=== PATIENT | female | born 1990 | race Caucasian/White ===

== ENCOUNTER 2019-02-21 09:37 | Emergency (ER) | payer MEDICAID ==
[2019-02-21 09:54] VITALS: BP 121/70
== END 2019-02-21 11:47 | disposition left against medical advice (07) ==
LOC: ER 09:37
DX: Z53.21 Procedure and treatment not carried out due to patient leaving prior to being seen by health care provider (principal)

== ENCOUNTER → 2019-02-28 | Outpatient (CLI) | payer BC, MEDICAID ==
[2019-02-28 17:59] LABS: ABSOLUTE EOSINOPHILS # (AUTO) 0.1 10^3/uL (0.0-0.6); ABSOLUTE LYMPHOCYTES (AUTO) 2.8 10^3/uL (0.5-4.7); ABSOLUTE MONOCYTES (AUTO) 0.8 10^3/uL (0.1-1.4); ABSOLUTE NEUT (AUTO) 4.7 10^3/uL (1.7-8.2); BASOPHILS % (AUTO) 0.5 % (0-2); EOSINOPHILS % (AUTO) 1.6 % (0-6); HEMATOCRIT 30.1 % (36.0-47.0); HEMOGLOBIN 9.3 g/dL (12.0-15.5); LYMPHOCYTES % (AUTO) 33.1 % (13-45); MEAN CORPUSCULAR HEMOGLOBIN 21.2 pg (27.0-33.4); MEAN CORPUSCULAR HGB CONC 30.8 g/dL (32.0-36.0); MEAN CORPUSCULAR VOLUME 69 fl (80-97); MONOCYTES % (AUTO) 9.1 % (3-13); PLATELET COUNT 272 10^3/uL (150-450); RED BLOOD COUNT 4.37 10^6/uL (3.72-5.28); RED CELL DISTRIBUTION WIDTH 19.5 % (11.5-14.0); SEGMENTED NEUTROPHILS % (AUTO) 55.7 % (42-78); TOTAL CELLS COUNTED % (AUTO) 100 %; WHITE BLOOD COUNT 8.4 10^3/uL (4.0-10.5)
[2019-02-28 18:13] LABS: IRON(TIBC) 18.4 ug/dL (37-170)
[2019-02-28 18:54] LABS: FERRITIN 6.04 ng/mL (6.2-137.0)
== END ==
LOC: OD 17:00
PROVIDERS: ATTEND Student in an Organized Health Care Education/Training Program
DX: Z13.0 Encounter for screening for diseases of the blood and blood-forming organs and certain disorders involving the immune mechanism (principal)
CPT/HCPCS: 36415; 82607; 82728; 82746; 83540; 83550; 85025

== ENCOUNTER → 2019-05-10 | Outpatient (CLI) | payer BC, MEDICAID | LOC: OD 12:36 | PROVIDERS: ATTEND Advanced Practice Midwife | DX: Z36.89 Encounter for other specified antenatal screening (principal) | CPT/HCPCS: 36415; 82105; 82677; 84702; 86336 ==

== ENCOUNTER 2019-05-22 23:20 | Emergency (ER) | payer BC, MEDICAID ==
--- NOTE | 2019-05-23 00:01 | ER Document Report ---
ED General - General Chief Complaint: Lower Abdominal Pain Stated Complaint: LOWER ABDOMINAL PAIN Time Seen by Provider: 05/22/19 23:41 Primary Care Provider: KOSTA BOJORQUEZ CNM [Primary Care Provider] - Follow up as needed Notes: 28-year-old female G4, who is 18 weeks presents the emergency department with intermittent cramping lower abdominal pain that is going on every 6 to 7 minutes since around 830 this evening associated with vaginal bleeding that is approximately 1 pad every 1-2 hours. Patient states that she is actually started slow down a little bit since arriving in the emergency department. Denies dysuria, denies vomiting. States that she has intermittently had bleeding and pain throughout this however has not been this bad this . Admits to uterine fibroids during this and states she has been told that she is having bleeding around the placenta. [facility], will start seeing [facility] on 06/14/2019 in [place]. TRAVEL OUTSIDE OF THE [place] IN LAST 30 DAYS: No - Related Data Allergies/Adverse Reactions: No Known Allergies Allergy (Verified 02/21/19 09:41) Past Medical History - General Information source: Patient - Social History Smoking Status: Former Smoker Chew tobacco use (# tins/day): No Frequency of alcohol use: None Drug Abuse: None, Marijuana Family History: Reviewed & Not Pertinent Patient has suicidal ideation: No Patient has homicidal ideation: No - Past Medical History Cardiac Medical History: Denies: Hx Hypertension Neurological Medical History: Denies: Hx Cerebrovascular Accident, Hx Migraine Endocrine Medical History: Denies: Hx Diabetes Mellitus Type 2 Musculoskeletal Medical History: Reports Hx Arthritis - mild Psychiatric Medical History: Reports: Hx Anxiety, Hx Bipolar Disorder - Immunizations Hx Diphtheria, Pertussis, Tetanus Vaccination: Yes Review of Systems - Review of Systems Constitutional: No symptoms reported Gastrointestinal: See HPI Genitourinary: See HPI Female Genitourinary: See HPI -: Yes All other systems reviewed and negative Physical Exam - Vital signs Vitals: Temp Pulse Resp BP Pulse Ox 98.0 F 83 18 111/66 100 05/22/19 23:24 05/22/19 23:24 05/22/19 23:24 05/22/19 23:24 05/22/19 23:24 Interpretation: Normal - Notes Notes: GENERAL: Awake, sitting up in bed, appears anxious and uncomfortable. Mildly diaphoretic. HEAD: Normocephalic, atraumatic EYES: Pupils equal, round and reactive to light, extraocular movements intact. ENT: Oral mucosa moist, tongue midline. NECK: Full range of motion, supple, trachea midline. LUNGS: Clear to auscultation bilaterally, no wheezes, rales or rhonchi, no respiratory distress. HEART: Regular rate and rhythm, no murmurs, gallops, rubs. ABDOMEN: Soft, tender to palpation suprapubically, uterus appropriate for dates, bedside transabdominal ultrasound shows active baby with normal heart rate, bowel sounds present in all 4 quadrants. EXTREMITIES: Moves all 4 extremities spontaneously, no edema, radial and dorsalis pedis pulses 2/4 bilaterally. No cyanosis. NEUROLOGICAL: Alert and oriented x3, normal speech. PSYCH: Anxious. SKIN: Warm, diaphoretic normal turgor, no rashes or lesions noted. - Genitourinary External exam: Normal Speculum exam: Cervix closed. No: Products of conception Vaginal bleeding: None Course - Re-evaluation Re-evalutation: 05/23/19 02:48 CBC shows anemia with hemoglobin 10.2, on February 28 it was 9.3, no leukocytosis, CMP unremarkable, urinalysis shows trace ketones, cramping is decreased with Nubain and fluids, OB ultrasound shows subchorionic hemorrhage. Obstetrics Ultrasound 05/22/19 23:58 IMPRESSION: 1. Single viable IUP, EGA 18 weeks 6 days, [place] 10/16/2019 2. Atypical area along the uterine wall, possibly prior hemorrhage or an area of uterine contraction. Follow-up recommended. Bleeding has stopped, cervix is closed. Patient is recommended to rest for the next few days, I will write her a work note. Patient states she is supposed to be getting iron transfusions but has been difficulty accessing this. We discussed hiring foods, cooking and cast iron and eating raisin Bran both as a high iron food and something to help with her constipation. Also discussed the possibility of using magnesium to help with her uterine cramping as well as constipation. Will follow-up as an outpatient. Discharged home. - Vital Signs Vital signs: Temp Pulse Resp BP Pulse Ox 98.0 F 83 18 111/66 100 05/22/19 23:24 05/22/19 23:24 05/22/19 23:24 05/22/19 23:24 05/22/19 23:24 - Laboratory Result Diagrams: 05/23/19 00:00 05/23/19 00:00 Laboratory results interpreted by me: 05/23/19 05/23/19 05/23/19 00:00 00:00 00:53 Hgb 10.2 L Hct 31.4 L MCV 74 L MCH 24.1 L RDW 18.3 H Sodium 135.1 L Albumin 3.4 L Urine Ketones TRACE H Discharge - Discharge Clinical Impression: Haemorrhage complicating , less than 22 weeks, antepartum, Second trimester Condition: Stable Disposition: HOME, SELF-CARE Additional Instructions: You need to be on complete pelvic rest as long as you are having bleeding or cramping. Do not have sex, do not use tampons, do not put anything in your vagina. I am recommending that you stay off of work for the next few days to rest and recover. For more time off of work than that you will need to follow-up with [facility] as an outpatient. You can try taking magnesium oxide, also noticed Mag-Ox, 400 to 800 mg daily in the evenings in order to decrease constipation, possibly decrease your uterine cramping and help with any muscle cramps that you may be getting in as well. This can make you somewhat sleepy so I recommend taking it at night. Please dissolve 1 scoop of MiraLAX in a glass of water once a day to treat constipation. You may increase to twice a day if needed to create soft bowel movements and you may decrease to every other day if you develop diarrhea. For your nausea with please consider keeping bland snacks beside your bed such as saltines or wheat thins that you can eat 1 or 2 of as soon as you wake up in the morning to help absorb acid in your stomach. You should also consider taking a daily antacid to decrease the acid in your stomach such as Pepcid or Protonix as directed on the bottle [id number]. Please return to the emergency department for any new or concerning symptoms. Forms: Return to Work Referrals: KOSTA BOJORQUEZ CNM [Primary Care Provider] - Follow up as needed [facility] [Provider Group] - Follow up as needed
[2019-05-23 00:17] LABS: ABSOLUTE BASOPHILS # (AUTO) 0.1 10^3/uL (0.0-0.2); ABSOLUTE LYMPHOCYTES (AUTO) 2.4 10^3/uL (0.5-4.7); ABSOLUTE MONOCYTES (AUTO) 0.5 10^3/uL (0.1-1.4); ABSOLUTE NEUT (AUTO) 5.2 10^3/uL (1.7-8.2); EOSINOPHILS % (AUTO) 0.6 % (0-6); HEMATOCRIT 31.4 % (36.0-47.0); HEMOGLOBIN 10.2 g/dL (12.0-15.5); MEAN CORPUSCULAR HEMOGLOBIN 24.1 pg (27.0-33.4); MEAN CORPUSCULAR HGB CONC 32.5 g/dL (32.0-36.0); MEAN CORPUSCULAR VOLUME 74 fl (80-97); MONOCYTES % (AUTO) 6.3 % (3-13); PLATELET COUNT 207 10^3/uL (150-450); RED BLOOD COUNT 4.24 10^6/uL (3.72-5.28); RED CELL DISTRIBUTION WIDTH 18.3 % (11.5-14.0); SEGMENTED NEUTROPHILS % (AUTO) 63.1 % (42-78); TOTAL CELLS COUNTED % (AUTO) 100 %; WHITE BLOOD COUNT 8.3 10^3/uL (4.0-10.5)
[2019-05-23] MEDS ORDERED: NALBUPHINE HCL INJ 10 MG/1 ML AMPULE INJ ONE (00:32)
[2019-05-23] MEDS ORDERED: NORMAL SALINE 1000 ML 1,000 ML IV ONE (00:32)
[2019-05-23 00:39] LABS: ALBUMIN 3.4 g/dL (3.5-5.0); ALKALINE PHOSPHATASE 60 U/L (38-126); ANION GAP 6 (5-19); ASPARTATE AMINO TRANSFERASE 17 U/L (14-36); BILIRUBIN,TOTAL 0.3 mg/dL (0.2-1.3); BLOOD UREA NITROGEN 7 mg/dL (7-20); CALCIUM 9.3 mg/dL (8.4-10.2); CARBON DIOXIDE 22 mmol/L (22-30); CHLORIDE 107 mmol/L (98-107); GLUCOSE 85 mg/dL (75-110); POTASSIUM 3.6 mmol/L (3.6-5.0); TOTAL PROTEIN 6.5 g/dL (6.3-8.2)
[2019-05-23 01:13] LABS: APPEARANCE,URINE CLEAR; BILIRUBIN,URINE NEGATIVE (NEGATIVE); COLOR,URINE STRAW; GLUCOSE, URINE NEGATIVE (NEGATIVE); KETONES,URINE TRACE mg/dL (NEGATIVE); LEUKOCYTE ESTERASE,URINE NEGATIVE (NEGATIVE); NITRITE,URINE NEGATIVE (NEGATIVE); PROTEIN,URINE NEGATIVE (NEGATIVE); URINE SPECIFIC GRAVITY 1.008; UROBILINOGEN,URINE NEGATIVE mg/dL (<2.0)
--- NOTE | 2019-05-23 01:55 | RADIOLOGY REPORT (SQ) ---
EXAM DESCRIPTION: RadLex: US FOLLOW UP CLINICAL HISTORY: 28 years Female; vaginal bleeding, cramping TECHNIQUE: Transabdominal obstetrical ultrasound was performed. COMPARISON: None. FINDINGS: Number of fetuses: Single position: Vertex BPD: 4.4 cm, 19 weeks 2 days HC: 16.78 cm, 19 weeks 3 days AC: 13.54 cm, 19 weeks 0 days FL: 2.79 cm, 18 weeks 4 days EFW: 261 g HR: 121 BPM Anatomy: Within normal limits Amniotic fluid:Adequate Cervix: 3.2 cm long Placenta: Fundal Along the left lower margin of the uterine wall there is 2.7 x 2.2 x 1.3 cm area of slightly hypoechoic heterogeneous echogenicity. This is indeterminate for previous hematoma or possibly area of uterine contractions. Follow-up evaluation is recommended. IMPRESSION: 1. Single viable IUP, EGA 18 weeks 6 days, [place] 10/16/2019 2. Atypical area along the uterine wall, possibly prior hemorrhage or an area of uterine contraction. Follow-up recommended.
[2019-05-23 03:05] VITALS: BP 104/43
== END 2019-05-23 03:38 | disposition home or self-care (01) ==
LOC: ER 23:20
DX: O20.8 Other hemorrhage in early pregnancy (principal); O99.612 Diseases of the digestive system complicating pregnancy, second trimester; K59.00 Constipation, unspecified; O26.892 Other specified pregnancy related conditions, second trimester; R10.30 Lower abdominal pain, unspecified; R61 Generalized hyperhidrosis; O99.012 Anemia complicating pregnancy, second trimester; D64.9 Anemia, unspecified; Z3A.18 18 weeks gestation of pregnancy; Z87.891 Personal history of nicotine dependence
CPT/HCPCS: 86900; 86901; 36415; 85025; 80053; 81001; 76805; 93976; J2300; J7030; 96361; 96374; 99284

== ENCOUNTER 2019-07-21 07:29 | Outpatient (CLI) | payer BC, MEDICAID ==
[2019-07-21 08:05] LABS: INTERNATIONAL RATION (INR) 0.89
[2019-07-21 08:06] LABS: FIBRINOGEN 409 mg/dL (209-497); PARTIAL THROMBOPLASTIN TIME 23.5 SEC (23.5-35.8)
[2019-07-21] MEDS ORDERED: PENICILLIN G-K 5 MILLION UNIT VIAL ONE (08:13)
[2019-07-21] MEDS ORDERED: BETAMET ACET/BETAMET NA INJ 6 MG/1 ML ONE (08:13)
[2019-07-21] MEDS ORDERED: NORMAL SALINE 250 ML IV PRN (08:15)
[2019-07-21 08:22] LABS: ABSOLUTE BASOPHILS # (AUTO) 0.1 10^3/uL (0.0-0.2); ABSOLUTE EOSINOPHILS # (AUTO) 0.2 10^3/uL (0.0-0.6); ABSOLUTE LYMPHOCYTES (AUTO) 2.9 10^3/uL (0.5-4.7); ABSOLUTE MONOCYTES (AUTO) 0.7 10^3/uL (0.1-1.4); EOSINOPHILS % (AUTO) 1.8 % (0-6); HEMATOCRIT 39.6 % (36.0-47.0); HEMOGLOBIN 13.7 g/dL (12.0-15.5); LYMPHOCYTES % (AUTO) 26.6 % (13-45); MEAN CORPUSCULAR HEMOGLOBIN 30.5 pg (27.0-33.4); MEAN CORPUSCULAR HGB CONC 34.7 g/dL (32.0-36.0); MEAN CORPUSCULAR VOLUME 88 fl (80-97); MONOCYTES % (AUTO) 6.4 % (3-13); PLATELET COUNT 224 10^3/uL (150-450); RED CELL DISTRIBUTION WIDTH 27.4 % (11.5-14.0); SEGMENTED NEUTROPHILS % (AUTO) 64.2 % (42-78); TOTAL CELLS COUNTED % (AUTO) 100 %
--- NOTE | 2019-07-21 08:35 | Admission Physical ---
Datetime Report Generated by CPN: 07/21/2019 08:34 CURRENT ADMISSION Chief Complaint: Vaginal Bleeding Chief Complaint Other: Reports heavy vaginal bleeding this am. Bleeding throughout off and on but much heavier today. Reports pressure and pain this am like she has to push Admit Impression : Vaginal Bleeding Admit Impression- Other: Vaginal bleeding light to minimal at this time. Abd soft. heart rate reassuring at 130 bpm. Cervix cm and thick. Admit Plan: Admit to Unit; Initiate Labor Protocol Admit Plan- Other: Admit for abruption ALLERGIES Medication Allergies: Yes Medication Allergies: Latex, Natural Rubber/MO (07/21/2019); methadone/SV (07/21/2019) Latex: Latex Allergies Food Allergies: None Environmental Allergies: None OBSTETRICAL HISTORY EDC: 10/21/2019 00:00 : 4 Para: 2 Term: 2 SAB: 1 Ectopic: 0 Livin Cesareans: 0 VBACs: 0 Gestational Diabetes: No Rh Sensitization: No Incompetent Cervix: No ROMAN: No Infertility: No ART Treatment: No Uterine Anomaly: No IUGR: No Hx Previous C/S: No Macrosomia: No Hx Loss/Stillborn: No PIH: No Hx : No Placenta Previa/Abruption: No Depression/PP Depression: Yes PTL/PROM: No Post Hemorrhage: No Current Procedures: Ultrasound Obstetrical History Comments: G1- 2004, IOL, post dates G2- 2007,SAB G3- 2010, Cord around neck and shoulder, G4- Current, EMS to [facility] for vaginal bleeding, 26.6 weeks SEE RECORDS Alcohol: No Marijuana : No Cocaine: No Other Illicit Drugs: No Cigarettes: Current Everyday Smoker. [id number] Cigarette Frequency: < 5 per day Advised to Stop: Yes MEDICAL HISTORY Diabetes: No Blood Transfusion: No Pulmonary Disease (Asthma, TB): No Breast Disease: No Hypertension: No Communications Clerk Surgery: No Heart Disease: Yes Hosp/Surgery: Yes Autoimmune Disorder: No Anesthetic Complications: No Kidney Disease: No Abnormal Pap Smear: Yes Neuro/Epilepsy: No Psychiatric Disorders: Yes Other Medical Diseases: No Hepatitis/Liver Disease: No Significant Family History: No Varicosities/Phlebitis: No Trauma/Violence : No Thyroid Dysfunction: No Medical History Comments: Heart flutters, PTSD, depression, [place] teeth removed, Childbirth cervical bx INFECTIOUS HISTORY Gonorrhea: No Genital Herpes: No Chlamydia: No Tuberculosis: No Syphilis: No Hepatitis: No HIV/AIDS Exposure: No Rash or Viral Illness: No HPV: No PHYSICAL EXAM General: Normal HEENT: Normal Neurologic: Normal Thyroid: Normal Heart: Normal Lungs: Normal Breast: Normal Back: Normal Abdomen: Normal Genitourinary Exam: Abnormal Extremities: Normal DTRs: Normal Pelvic Type: Adequate Physical Exam Comments: Sterile speculum exam showed no active bleeding from cervix. Small amount blood in vault ( < 3 cc). Cervix appears closed and is assessed digitally at /th/high Vital Signs: Reviewed VAGINAL EXAM Dilatation: 1 Effacement: 0 Station: -3 Contraction Comments: Every 3 minutes FETUS A EGA: 26.6 Monitoring: External US FHR- Baseline: 125 Variability: Moderate 6-25bpm Accelerations: 10X10 Decelerations: None Admit Comment: at 26.6 wks EGA with placental abruption -Exam on admisssion showed no active bleeding from cervix but evidence of recent bleed. Abd soft -Cervix 1/th/high -Admit to LDR -Two large bore IVs. NS at 150 cc/hr -NPO -EFM and toco -Labs with coags, Type and screen, UDS, fibrinogen -US at bedside -Betamethasone 12 mg IM now and repeat x1 in 24 hrs. -PCN IV for GBS prophylaxis -SCDs -Will hold off on Mag sulfate currently as she is unlikely to delivery currently. Start if delivery emminent -Will monitor for further bleeding and assess baby PLANS FOR LABOR AND DELIVERY Labor and Delivery: None Pain Management: Natural; Medications Feeding Preference: Breast Benefit of Breast Feed Discussed: Yes Circumcision: N/A INFORMED CONSENT Informed Consent Obtained: Vaginal Delivery; Section Delivery; Risks, Benefits and Alternatives Discussed Signature: with User ID: [email or web address] : with User ID: [email or web address]
[2019-07-21] MEDS ORDERED: RINGERS SOLUTION,LACTATED 1,000 ML IV PRN (08:37)
[2019-07-21] MEDS ORDERED: RINGERS SOLUTION,LACTATED 300 ML IV ONE (08:37)
[2019-07-21] MEDS ORDERED: BETAMET ACET/BETAMET NA INJ 6 MG/1 ML IM PRN (08:41)
[2019-07-21 08:54] LABS: TOXIC VACUOLATION PRESENT
[2019-07-21 08:55] LABS: ANISOCYTOSIS 3+; PLATELET COMMENT ADEQUATE; POLYCHROMASIA SLIGHT
[2019-07-21] MEDS ORDERED: MAGNESIUM SULFATE 4 GM/100 ML RTUPB IV ONE ×2 (09:02→09:17)
[2019-07-21] MEDS ORDERED: MAGNESIUM SULFATE 20 GM/500 ML RTUINJ IV ONE (09:02)
[2019-07-21] MEDS ORDERED: PROMETHAZINE HCL INJ 25 MG/1 ML VIAL IV ONE (09:05)
--- NOTE | 2019-07-21 09:06 | RADIOLOGY REPORT (SQ) ---
EXAM DESCRIPTION: U/S OB LIMITED COMPLETED DATE/TIME: 07/21/2019 8:38 am REASON FOR STUDY: iup 26 weeks active bleeding COMPARISON: None. TECHNIQUE: Limited transabdominal grayscale ultrasound for evaluation of specific requested obstetri zoë parameters. LIMITATIONS: None. FINDINGS: CERVICAL LENGTH: 2.8 cm Closed. UIL: Total ULI 11.7 cm. FHR: 132 beats per minute. PRESENTATION: Cephalic. PLACENTA: Fundal, grade 1 ANATOMY: Not assessed OTHER: Additional cine loop images were recorded over the placenta. No findings worrisome for abrupt ion. Fundal placenta. Grade 1 IMPRESSION: LIMITED OBSTETRICAL ULTRASOUND WITH MEASURED PARAMETERS DELINEATED ABOVE. Trimester of : Second trimester - 13 weeks 1 day to 27 weeks 6 days. TECHNICAL DOCUMENTATION: JOB ID: [id number]- All Rights Reserved Reading location - IP/workstation name: [email or web address]
[2019-07-21] MEDS ORDERED: MAGNESIUM SULFATE 20 GM/500 ML RTUINJ IV PRN (09:17)
[2019-07-21 13:00] LABS: APPEARANCE,URINE CLEAR; BILIRUBIN,URINE NEGATIVE (NEGATIVE); COLOR,URINE YELLOW; GLUCOSE, URINE NEGATIVE (NEGATIVE); KETONES,URINE NEGATIVE (NEGATIVE); LEUKOCYTE ESTERASE,URINE NEGATIVE (NEGATIVE); NITRITE,URINE NEGATIVE (NEGATIVE); PROTEIN,URINE NEGATIVE (NEGATIVE); URINE SPECIFIC GRAVITY 1.015; UROBILINOGEN,URINE NEGATIVE mg/dL (<2.0)
[2019-07-21 13:13] LABS: URINE AMPHETAMINES SCREEN NEGATIVE; URINE BARBITURATES SCREEN NEGATIVE; URINE BENZODIAZEPINES SCREEN NEGATIVE; URINE COCAINE SCREEN NEGATIVE; URINE METHADONE SCREEN NEGATIVE; URINE PHENCYCLIDINE SCREEN NEGATIVE
[2019-07-21 13:16] LABS: URINE MARIJUANA (THC) SCREEN UNCONFIRMED POSITIVE
== END 2019-07-21 10:15 | disposition short-term general hospital (02) ==
LOC: LC 07:29 → UNDOADMIN 07:40 → LR 07:40 → LC 10:15
PROVIDERS: ATTEND Obstetrics & Gynecology Gynecology
PROC: 4A1HXCZ Monitoring of Products of Conception, Cardiac Rate, External Approach (ICD-10-PCS; principal; 2019-07-21)
DX: O46.92 Antepartum hemorrhage, unspecified, second trimester (principal); O45.92 Premature separation of placenta, unspecified, second trimester; O99.332 Smoking (tobacco) complicating pregnancy, second trimester; F17.210 Nicotine dependence, cigarettes, uncomplicated; O99.342 Other mental disorders complicating pregnancy, second trimester; F43.10 Post-traumatic stress disorder, unspecified; Z3A.26 26 weeks gestation of pregnancy; Z91.040 Latex allergy status
CPT/HCPCS: 59899; 86900; 86901; 36415; 86850; 85025; 85384; 85610; 85730; 86592; 81001; 80307; 86920; 76815; G0480 ×2; J3475 ×2; J2540; J0702; 59025; 80349; 94760; 96372

== ENCOUNTER 2019-09-19 16:03 | Emergency (ER) | payer BC, MEDICAID ==
--- NOTE | 2019-09-19 16:21 | ER Document Report ---
ED Medical Screen (RME) - General Chief Complaint: Vaginal Bleeding Stated Complaint: VAGINAL BLEEDING Time Seen by Provider: 09/19/19 16:15 Primary Care Provider: KOSTA BOJORQUEZ CNM [Primary Care Provider] - Follow up as needed TRAVEL OUTSIDE OF THE [place] IN LAST 30 DAYS: No - HPI Notes: 09/19/19 16:19 Patient is a 29-year-old female who presents complaining of vaginal bleeding Saturday night and was seen yesterday at another emergency department and had labs and ultrasound performed. She states that she was told that she had fibroids and was placed on control which she has started. Patient states that the bleeding increased so she came here for evaluation. No fever. Patient states that on occasion she will have some pain but nothing right now. I have treated and performed a rapid initial assessment of this patient. A comprehensive ED assessment and evaluation of the patient, analysis of test results and completion of medical decision making process will be conducted by additional ED providers. PHYSICAL EXAMINATION: GENERAL: Patient does appear to be drowsy and does not make eye contact. No acute distress. A&Ox4. Answers questions appropriately. - Related Data Allergies/Adverse Reactions: methadone Allergy (Severe, Verified 07/21/19 07:56) Latex, Natural Rubber Adverse Reaction (Mild, Verified 07/21/19 07:56) Home Medications: Oral control Past Medical History - Past Medical History Cardiac Medical History: Denies: Hx Hypertension Neurological Medical History: Denies: Hx Cerebrovascular Accident, Hx Migraine Endocrine Medical History: Denies: Hx Diabetes Mellitus Type 2 Musculoskeltal Medical History: Reports Hx Arthritis - mild Psychiatric Medical History: Reports: Hx Anxiety, Hx Bipolar Disorder - Immunizations Hx Diphtheria, Pertussis, Tetanus Vaccination: Yes Physical Exam - Vital signs Vitals: Temp Pulse Resp BP Pulse Ox 98.1 F 73 18 128/75 H 100 09/19/19 16:08 09/19/19 16:08 09/19/19 16:08 09/19/19 16:08 09/19/19 16:08 Course - Vital Signs Vital signs: Temp Pulse Resp BP Pulse Ox 98.1 F 73 18 128/75 H 100 09/19/19 16:08 09/19/19 16:08 09/19/19 16:08 09/19/19 16:08 09/19/19 16:08 Doctor's Discharge - Discharge Referrals: KOSTA BOJORQUEZ, CNM [Primary Care Provider] - Follow up as needed
[2019-09-19 17:00] LABS: ABSOLUTE EOSINOPHILS # (AUTO) 0.1 10^3/uL (0.0-0.6); ABSOLUTE LYMPHOCYTES (AUTO) 2.2 10^3/uL (0.5-4.7); ABSOLUTE MONOCYTES (AUTO) 0.5 10^3/uL (0.1-1.4); ABSOLUTE NEUT (AUTO) 2.8 10^3/uL (1.7-8.2); BASOPHILS % (AUTO) 0.6 % (0-2); EOSINOPHILS % (AUTO) 2.2 % (0-6); HEMATOCRIT 41.2 % (36.0-47.0); LYMPHOCYTES % (AUTO) 38.9 % (13-45); MEAN CORPUSCULAR HEMOGLOBIN 31.5 pg (27.0-33.4); MEAN CORPUSCULAR HGB CONC 34.1 g/dL (32.0-36.0); MEAN CORPUSCULAR VOLUME 92 fl (80-97); MONOCYTES % (AUTO) 8.6 % (3-13); PLATELET COUNT 213 10^3/uL (150-450); RED BLOOD COUNT 4.46 10^6/uL (3.72-5.28); RED CELL DISTRIBUTION WIDTH 14.5 % (11.5-14.0); SEGMENTED NEUTROPHILS % (AUTO) 49.7 % (42-78); TOTAL CELLS COUNTED % (AUTO) 100 %; WHITE BLOOD COUNT 5.6 10^3/uL (4.0-10.5)
--- NOTE | 2019-09-19 17:06 | ER Document Report ---
ED GI/ - General Chief Complaint: Vaginal Bleeding Stated Complaint: VAGINAL BLEEDING Time Seen by Provider: 09/19/19 16:15 Primary Care Provider: KOSTA BOJORQUEZ CNM [ACTIVE STAFF] - Follow up as needed Notes: CHIEF COMPLAINT: Vaginal bleeding HPI: 29-year-old female presenting to the emergency department complaining of vaginal bleeding. Patient states she started vaginal bleeding 3 days ago. She felt like it was exceptionally heavy and she went to [facility] yesterday. Patient states that she had blood work and an ultrasound done and was told she had fibroids. She was prescribed Provera which she did not take until 4 hours ago. She felt like she was having excessive bleeding today so decided to come back into the emergency department for reevaluation. Patient states she saturated 3 menstrual pads in an hour. Difficult to obtain history as patient answers slowly and limits her answers to very few words ROS: See HPI - all other systems were reviewed and are otherwise negative Constitutional: no fever or recent illness Eyes: no drainage, no blurred vision ENT: no runny nose, no sore throat Cardiovascular: no chest pain Resp: no SOB, no cough GI: no vomiting, no diarrhea, + pelvic pain : no dysuria, no vaginal discharge, + vaginal bleeding Integumentary: no rash Allergy: no hives Musculoskeletal: no extremity pain or swelling Neurological: no numbness/tingling, no weakness MEDICATIONS: I agree with the patient medications as charted by the RN. ALLERGIES: I agree with the allergies as charted by the RN. PAST MEDICAL HISTORY/PAST SURGICAL HISTORY: Reviewed and agree as charted by RN. SOCIAL HISTORY: Reviewed and agree as charted by RN. FAMILY HISTORY: No significant familial comorbid conditions directly related to patient complaint EXAM: Reviewed vital signs as charted by RN. CONSTITUTIONAL: Alert and oriented and responds appropriately to questions. Well -appearing; well-nourished. HEAD: Normocephalic; atraumatic EYES: PERRL; Conjunctivae clear, sclerae non-icteric ENT: normal nose; no rhinorrhea; moist mucous membranes; pharynx without lesions noted NECK: Supple without meningismus; non-tender; no cervical lymphadenopathy, no masses CARD: RRR; no murmurs, no clicks, no rubs, no gallops; symmetric distal pulses RESP: Normal chest excursion without splinting or tachypnea; breath sounds clear and equal bilaterally; no wheezes, no rhonchi, no rales, ABD/GI: Normal bowel sounds; non-distended; soft, non-tender, no rebound, no guarding; no palpable organomegaly or masses : Female nurse on air host present. External genitalia normal. No skin lesions noted. Pelvic Exam: Small amount of dark red blood in the vaginal vault without clots. No purulent discharge. Cervix appears normal. BACK: The back appears normal and is non-tender to palpation, there is no CVA tenderness EXT: Normal ROM in all joints; non-tender to palpation; no cyanosis, no effusions, no edema SKIN: Normal color for age and race; warm; dry; good turgor; no acute lesions noted NEURO: Moves all extremities equally; Motor and sensory function intact PSYCH: The patient's mood and manner are appropriate. Grooming and personal hygiene are appropriate. MDM: 29-year-old female presenting with heavy vaginal bleeding. Patient does have some dark blood in the vaginal vault but does not appear to be hemorrhaging at this time. She is likely pooling some blood in the uterus. She did not register via the [employer] site with [employer] to obtain her lab work or ultrasound repo rts. They do not have copies of the ultrasound or lab reports. Patient initial screening hemoglobin and hematocrit are normal. Will obtain a 4-hour hemoglobin and hematocrit on the patient TRAVEL OUTSIDE OF THE [place] IN LAST 30 DAYS: No - Related Data Allergies/Adverse Reactions: methadone Allergy (Severe, Verified 07/21/19 07:56) Latex, Natural Rubber Adverse Reaction (Mild, Verified 07/21/19 07:56) Home Medications: Oral control Past Medical History - Social History Smoking Status: Current Every Day Smoker Family History: Reviewed & Not Pertinent Patient has suicidal ideation: No Patient has homicidal ideation: No - Past Medical History Cardiac Medical History: Denies: Hx Hypertension Neurological Medical History: Denies: Hx Cerebrovascular Accident, Hx Migraine Endocrine Medical History: Denies: Hx Diabetes Mellitus Type 2 Musculoskeletal Medical History: Reports Hx Arthritis - mild Psychiatric Medical History: Reports: Hx Anxiety, Hx Bipolar Disorder - Immunizations Hx Diphtheria, Pertussis, Tetanus Vaccination: Yes Physical Exam - Vital signs Vitals: Temp Pulse Resp BP Pulse Ox 98.1 F 73 18 128/75 H 100 09/19/19 16:08 09/19/19 16:08 09/19/19 16:08 09/19/19 16:08 09/19/19 16:08 Course - Re-evaluation Re-evalutation: 09/19/19 20:06 Patient states that she feels like her bleeding has lessened. Her 3-hour hemoglobin and hematocrit has not significantly changed. She will continue on the Sprintec which is what she was placed on. Follow-up with her RECORDS ANALYSIS MANAGER by phone tomorrow for reevaluation, bleeding instructions given - Vital Signs Vital signs: Temp Pulse Resp BP Pulse Ox 98.1 F 67 16 109/62 96 09/19/19 18:11 09/19/19 18:11 09/19/19 18:11 09/19/19 18:11 09/19/19 18:11 - Laboratory Result Diagrams: 09/19/19 19:25 09/19/19 16:31 Laboratory results interpreted by me: 09/19/19 09/19/19 09/19/19 16:27 16:31 16:31 RDW 14.5 H Glucose 71 L Urine Blood LARGE H 09/19/19 19:25 RDW 14.1 H Glucose Urine Blood Discharge - Discharge Clinical Impression: DUB (dysfunctional uterine bleeding) Condition: Stable Disposition: HOME, SELF-CARE Instructions: Dysfunctional Uterine Bleeding ([facility]) Additional Instructions: Continue to take the Sprintec as previously ordered. Call your RECORDS ANALYSIS MANAGER tomorrow to discuss the abnormal vaginal bleeding, medications and recheck in the office. If you have worsening vaginal bleeding return for reevaluation Referrals: KOSTA BOJORQUEZ CNM [ACTIVE STAFF] - Follow up as needed
[2019-09-19 17:07] LABS: APPEARANCE,URINE CLEAR; BILIRUBIN,URINE NEGATIVE (NEGATIVE); COLOR,URINE YELLOW; GLUCOSE, URINE NEGATIVE (NEGATIVE); KETONES,URINE NEGATIVE (NEGATIVE); PROTEIN,URINE NEGATIVE (NEGATIVE); URINE SPECIFIC GRAVITY 1.021; UROBILINOGEN,URINE NEGATIVE mg/dL (<2.0)
[2019-09-19 17:21] LABS: ALBUMIN 3.9 g/dL (3.5-5.0); ALKALINE PHOSPHATASE 68 U/L (38-126); ASPARTATE AMINO TRANSFERASE 18 U/L (14-36); BILIRUBIN,TOTAL 0.4 mg/dL (0.2-1.3); BLOOD UREA NITROGEN 14 mg/dL (7-20); CALCIUM 9.6 mg/dL (8.4-10.2); CHLORIDE 106 mmol/L (98-107); GLUCOSE 71 mg/dL (75-110); POTASSIUM 4.2 mmol/L (3.6-5.0); TOTAL PROTEIN 6.8 g/dL (6.3-8.2)
[2019-09-19 17:21] LABS: URINE AMPHETAMINES SCREEN NEGATIVE; URINE BARBITURATES SCREEN NEGATIVE; URINE BENZODIAZEPINES SCREEN NEGATIVE; URINE COCAINE SCREEN NEGATIVE; URINE MARIJUANA (THC) SCREEN NEGATIVE; URINE METHADONE SCREEN NEGATIVE; URINE PHENCYCLIDINE SCREEN NEGATIVE
[2019-09-19 17:27] LABS: CARBON DIOXIDE 29 mmol/L (22-30)
[2019-09-19 17:29] LABS: ANION GAP 5 (5-19)
[2019-09-19 19:55] LABS: HEMOGLOBIN 13.6 g/dL (12.0-15.5); MEAN CORPUSCULAR HEMOGLOBIN 31.4 pg (27.0-33.4); MEAN CORPUSCULAR HGB CONC 33.9 g/dL (32.0-36.0); MEAN CORPUSCULAR VOLUME 93 fl (80-97); PLATELET COUNT 194 10^3/uL (150-450); RED BLOOD COUNT 4.32 10^6/uL (3.72-5.28); RED CELL DISTRIBUTION WIDTH 14.1 % (11.5-14.0); WHITE BLOOD COUNT 7.2 10^3/uL (4.0-10.5)
[2019-09-19 20:18] VITALS: BP 112/74
== END 2019-09-19 20:20 | disposition home or self-care (01) ==
LOC: ER 16:03
DX: N93.8 Other specified abnormal uterine and vaginal bleeding (principal); R10.2 Pelvic and perineal pain; F17.200 Nicotine dependence, unspecified, uncomplicated; Z91.040 Latex allergy status
CPT/HCPCS: 36415; 80053; 80307; 81001; 81025; 85025; 99284

== ENCOUNTER 2019-11-05 20:33 | Emergency (ER) | payer OTHER, BC, MEDICAID ==
[2019-11-05] MEDS ORDERED: KETOROLAC TROMETHAMINE 60 MG/2 ML SDV IM ONE (20:49)
[2019-11-05] MEDS ORDERED: CYCLOBENZAPRINE HCL 10 MG TABLET PO ONE (20:49)
--- NOTE | 2019-11-05 20:51 | ER Document Report ---
ED Medical Screen (RME) - General Chief Complaint: Neck and Upper Back Pain Stated Complaint: NECK PAIN, SHOULDER PAIN Time Seen by Provider: 11/05/19 20:45 Primary Care Provider: CORNEL GARZA PA-C [Primary Care Provider] - Follow up as needed Notes: HPI: 29-year-old female presenting to the emergency department complaining of neck and upper back pain after an injury at work. Patient was lifting an afterbirth bucket and felt a twinge in the neck and back. Now with pain radiating across the shoulders with some numbness and tingling. Denies chest pain shortness of breath. Has been taking ibuprofen at home without resolution of the pain. I have greeted and performed a rapid initial assessment of this patient. A comprehensive ED assessment and evaluation of the patient, analysis of test results and completion of the medical decision making process will be conducted by additional ED providers PHYSICAL EXAMINATION: GENERAL: Well-appearing, well-nourished and in mild acute distress. HEAD: Atraumatic, normocephalic. EYES: sclera anicteric, conjunctiva are normal. ENT: Moist mucous membranes. NECK: Tenderness over the cervical spine and cervical paraspinous musculature into the bilateral trapezius region on palpation LUNGS: Normal work of breathing HEART: 2+ radial pulses bilaterally Back: Mild tenderness to the mid thoracic back and bilateral thoracic musculature on palpation ABD: limited by positioning for exam in triage. EXTREMITIES: no pitting or edema. No cyanosis. NEUROLOGICAL: No focal neurological deficits. Moves all extremities spontaneously and on command. PSYCH: Normal mood, normal affect. SKIN: Warm, Dry, normal turgor, no rashes or lesions noted. TRAVEL OUTSIDE OF THE [place] IN LAST 30 DAYS: No - Related Data Allergies/Adverse Reactions: methadone Allergy (Severe, Verified 07/21/19 07:56) Latex, Natural Rubber Adverse Reaction (Mild, Verified 07/21/19 07:56) Home Medications: control pills Past Medical History - Social History Frequency of alcohol use: None Drug Abuse: None - Past Medical History Cardiac Medical History: Denies: Hx Hypertension Neurological Medical History: Denies: Hx Cerebrovascular Accident, Hx Migraine Endocrine Medical History: Denies: Hx Diabetes Mellitus Type 2 Musculoskeltal Medical History: Reports Hx Arthritis - mild Psychiatric Medical History: Reports: Hx Anxiety, Hx Bipolar Disorder - Immunizations Hx Diphtheria, Pertussis, Tetanus Vaccination: Yes Physical Exam - Vital signs Vitals: Temp Pulse Resp BP Pulse Ox 98.4 F 88 20 128/69 H 99 11/05/19 20:37 11/05/19 20:37 11/05/19 20:37 11/05/19 20:37 11/05/19 20:37 Course - Vital Signs Vital signs: Temp Pulse Resp BP Pulse Ox 98.4 F 88 20 128/69 H 99 11/05/19 20:37 11/05/19 20:37 11/05/19 20:37 11/05/19 20:37 11/05/19 20:37 Doctor's Discharge - Discharge Referrals: CORNEL GARZA PA-C [Primary Care Provider] - Follow up as needed
--- NOTE | 2019-11-05 21:18 | RADIOLOGY REPORT (SQ) ---
EXAM DESCRIPTION: CT CERVICAL SPINE WITHOUT IV CONTRAST COMPLETED DATE/TME: 11/05/2019 20:49 CLINICAL HISTORY: 29 years, Female, injury COMPARISON: None TECHNIQUE: Multiplanar imaging through the cervical spine without contrast. This exam was performed according to our departmental dose-optimization program, which includes automated exposure control, adjustment of the mA and/or kV according to patient size and/or use of iterative reconstruction technique. FINDINGS: No fracture. No subluxation. Disc spaces are preserved. Soft tissues are unremarkable. Visualized lung is clear. IMPRESSION: No acute abnormality. No fracture or subluxation.
--- NOTE | 2019-11-05 21:45 | RADIOLOGY REPORT (SQ) ---
EXAM DESCRIPTION: Two views of the thoracic spine CLINICAL HISTORY: 29 years Female, back injury COMPARISON: None. FINDINGS: Alignment of spine is anatomic. Pedicles are intact. 12 rib bearing thoracic vertebral body segments are noted. No paraspinal abnormality. No fracture. Vertebral body heights and disc spaces are preserved. Very subtle curvature of the lower thoracic spine convex left is seen which may be positional. IMPRESSION: Unremarkable radiographs of the thoracic spine.
[2019-11-05] MEDS ORDERED: DIAZEPAM 5 MG TABLET PO ONE (23:34)
--- NOTE | 2019-11-05 23:38 | ER Document Report ---
HPI - HPI Time Seen by Provider: 11/05/19 20:45 Pain Level: 2 Context: Patient is a 29-year-old female that comes emergency department for chief complaint of neck and upper back pain. She states this started 2 days ago, she states this especially started after she had pain when she lifted a birthing bucket (she works at a [employer]). She states that she has tightness, difficulty moving, especially difficulty turning her head side to side. She denies impact injury. She denies numbness or tingling in her hands or feet, denies incontinence, denies fever, denies headache. She takes oral contraceptive pills, denies medications otherwise, denies medical history otherwise including recreational drugs. - CONSTITUTIONAL Constitutional: DENIES: Fever, Chills - REPRODUCTIVE Reproductive: DENIES: : Past Medical History - General Information source: Patient - Social History Smoking Status: Current Every Day Smoker Frequency of alcohol use: None Drug Abuse: None Lives with: Family Family History: Reviewed & Not Pertinent Patient has suicidal ideation: No Patient has homicidal ideation: No - Past Medical History Cardiac Medical History: Denies: Hx Hypertension Neurological Medical History: Denies: Hx Cerebrovascular Accident, Hx Migraine Endocrine Medical History: Denies: Hx Diabetes Mellitus Type 2 Musculoskeletal Medical History: Reports Hx Arthritis - mild Psychiatric Medical History: Reports: Hx Anxiety, Hx Bipolar Disorder - Immunizations Hx Diphtheria, Pertussis, Tetanus Vaccination: Yes Vertical Provider Document - CONSTITUTIONAL General Appearance: WD/WN. negative: No Apparent Distress - Patient moves stiffly and uncomfortably but otherwise does not appear to be in distress - INFECTION CONTROL TRAVEL OUTSIDE OF THE [place] IN LAST 30 DAYS: No - HEENT HEENT: Atraumatic, Normal ENT Exam, Normocephalic - NECK Neck: Normal Inspection - RESPIRATORY Respiratory: Breath Sounds Normal, No Respiratory Distress - CARDIOVASCULAR Cardiovascular: Regular Rate, Regular Rhythm - GI/ABDOMEN Gastrointestinal: Abdomen Soft, Abdomen Non-Tender. negative: Abdomen Tender - BACK Back: negative: Normal Inspection - There is tenderness along the paracervical and trapezius muscles, worse on the left, very limited lateral range of motion of the neck especially to the left. No midline tenderness, no saddle anesthesia, no signs of trauma. Normal upper and lower extremity range of motion, normal strength, normal distal neurovascular exam. - MUSCULOSKELETAL/EXTREMETIES Musculoskeletal/Extremeties: MAEW, FROM, Non-Tender - NEURO Level of Consciousness: Awake, Alert, Appropriate Motor/Sensory: No Motor Deficit, No Sensory Deficit - DERM Integumentary: Warm, Dry, No Rash Course - Re-evaluation Re-evalutation: Patient has no neurological deficits, no concerning reported history, no fever, and no noted midline tenderness on exam. She is also had no trauma. I did review work-up from triage and this was negative, discussed this with patient. Discussed suspected muscle spasm and strain, discussed recommendations, follow- up, treatment, return precautions. Patient ate appreciation and agreement. Stable at time of discharge. - Vital Signs Vital signs: Temp Pulse Resp BP Pulse Ox 98.4 F 88 20 128/69 H 99 11/05/19 20:37 11/05/19 20:37 11/05/19 20:37 11/05/19 20:37 11/05/19 20:37 Discharge - Discharge Clinical Impression: Neck pain, Upper back pain, Muscle spasm Condition: Stable Disposition: HOME, SELF-CARE Additional Instructions: The imaging of your cervical and thoracic spine is normal. Your evaluation is consistent with muscle strain and spasm of the paracervical and trapezius muscles. Take the muscle relaxer as prescribed especially at night help you sleep, take the anti-inflammatory as prescribed, apply heat to your neck, perform gentle massage and stretches. Symptoms should gradually resolve with time. Avoid lifting or twisting as this improves. Return if you worsen including severe worsening pain, numbness, fever, severe headache, or any other concerning or worsening symptoms. Prescriptions: Cyclobenzaprine HCl 1 - 2 tab PO Q8H PRN #20 tablet PRN Reason: Naproxen 500 mg PO BID PRN #20 tablet PRN Reason: Forms: Return to Work Referrals: CORNEL GARZA PA-C [Primary Care Provider] - Follow up as needed
[2019-11-05 23:50] VITALS: BP 105/59
== END 2019-11-05 23:50 | disposition home or self-care (01) ==
LOC: ER 20:33
DX: M54.2 Cervicalgia (principal); M54.6 Pain in thoracic spine; M62.838 Other muscle spasm; F17.200 Nicotine dependence, unspecified, uncomplicated; X50.9XXA Other and unspecified overexertion or strenuous movements or postures, initial encounter; Y92.79 Other farm location as the place of occurrence of the external cause; Y99.0 Civilian activity done for income or pay
CPT/HCPCS: 99284; 96372; 72070; 72125; J1885

== ENCOUNTER 2020-02-01 23:01 | Emergency (ER) | payer BC, MEDICAID ==
[2020-02-01] MEDS ORDERED: NORMAL SALINE 1000 ML 1,000 ML IV ONE (23:46)
[2020-02-01] MEDS ORDERED: ONDANSETRON HCL INJ/PF 4 MG/2 ML SDV IV ONE (23:46)
[2020-02-01] MEDS ORDERED: KETOROLAC TROMETHAMINE INJ/PF 30 MG/1 ML SDV IV ONE (23:46)
--- NOTE | 2020-02-01 23:48 | ER Document Report ---
ED General - General Chief Complaint: Shortness Of Breath Stated Complaint: Cough Time Seen by Provider: 02/01/20 23:32 Primary Care Provider: CORNEL GARZA PA-C [Primary Care Provider] - Follow up as needed Notes: Patient is a 29-year-old female that comes emergency department for chief complaint of sick symptoms that started approximately 3 days ago including cough, intermittent wheezing, body aches, chills, nausea. She denies chest pain, abdominal pain, flank pain, vomiting, diarrhea, or any obvious sick contac ts. She denies recent travel. She smokes, smokes marijuana, takes no daily medications, denies recreational drugs otherwise. Only past medical history reported is a . TRAVEL OUTSIDE OF THE [place] IN LAST 30 DAYS: No - Related Data Allergies/Adverse Reactions: methadone Allergy (Severe, Verified 07/21/19 07:56) Latex, Natural Rubber Adverse Reaction (Mild, Verified 07/21/19 07:56) Past Medical History - General Information source: Patient - Social History Smoking Status: Current Every Day Smoker Smoking Education Provided: Yes - <3 min Drug Abuse: None Lives with: Family Family History: Reviewed & Not Pertinent - Past Medical History Cardiac Medical History: Denies: Hx Hypertension Neurological Medical History: Denies: Hx Cerebrovascular Accident, Hx Migraine Endocrine Medical History: Denies: Hx Diabetes Mellitus Type 2 Musculoskeletal Medical History: Reports Hx Arthritis - mild Psychiatric Medical History: Reports: Hx Anxiety, Hx Bipolar Disorder - Immunizations Hx Diphtheria, Pertussis, Tetanus Vaccination: Yes Review of Systems - Review of Systems Constitutional: See HPI EENT: No symptoms reported Cardiovascular: No symptoms reported Respiratory: See HPI Gastrointestinal: See HPI Genitourinary: No symptoms reported Female Genitourinary: No symptoms reported Musculoskeletal: No symptoms reported Skin: No symptoms reported Hematologic/Lymphatic: No symptoms reported Neurological/Psychological: No symptoms reported Physical Exam - Vital signs Vitals: Temp Pulse Resp BP Pulse Ox 98.3 F 82 17 121/72 98 02/01/20 23:26 02/01/20 23:26 02/01/20 23:26 02/01/20 23:26 02/01/20 23:26 - Notes Notes: GENERAL: Alert, interacts well. No acute distress. HEAD: Normocephalic, atraumatic. EYES: Pupils equal, round, and reactive to light. Extraocular movements intact. ENT: Oral mucosa moist, tongue midline. Oropharynx unremarkable. Airway patent. Nares patent, sinuses non-tender, ear canals unremarkable, TM's intact. NECK: Full range of motion. Supple. Trachea midline. No lymphadenopathy. LUNGS: Clear to auscultation bilaterally, no wheezes, rales, or rhonchi. No respiratory distress. Non-tender chest wall. HEART: Regular rate and rhythm. No murmur ABDOMEN: Soft, non-tender. Non-distended. EXTREMITIES: Moves all 4 extremities spontaneously. No edema, normal radial and dorsalis pedis pulses bilaterally. No cyanosis. BACK: no cervical, thoracic, lumbar midline tenderness. No saddle anesthesia, normal distal neurovascular exam. Moves all extremities in full range of motion. NEUROLOGICAL: Alert and oriented x3. Normal speech. Cranial nerves II through X II grossly intact. Strength 5/5 in all extremities. PSYCH: Normal affect, normal mood. SKIN: Warm, dry, normal turgor. No rashes or lesions noted. Course - Re-evaluation Re-evalutation: Patient's variety of symptoms do suggest a viral illness. Chest x-ray is negative for pneumonia, CBC and chemistry are unremarkable, urinalysis u nremarkable except for elevated specific gravity. Patient given IV fluids, Toradol, Zofran. Patient is well-appearing and states she feels improved on reevaluation. Vital signs unremarkable. Abdomen is soft and benign, lungs are clear. Patient reports smoking history and wheezing at home intermittently although she is not wheezing now. Patient was provided with inhaler, spacer, nausea medication. Patient tested for common virus based on her symptoms. Discussed follow-up and return precautions. Discussed details on quarantine precautions and follow-up for this as well. Patient states understanding and agreement with plan. - Vital Signs Vital signs: Temp Pulse Resp BP Pulse Ox 97.9 F 71 21 H 125/78 100 02/02/20 04:13 02/02/20 04:13 02/02/20 04:13 02/02/20 04:13 02/02/20 04:13 - Laboratory Result Diagrams: 02/02/20 00:15 02/02/20 00:15 Laboratory results interpreted by me: 02/01/20 02/02/20 02/02/20 23:30 00:15 00:15 RDW 14.6 H Sodium 135.6 L Urine Ascorbic Acid 40 H Discharge - Discharge Clinical Impression: Cough, Chills, Nausea Disposition: HOME, SELF-CARE Additional Instructions: Your work-up shows some dehydration but is otherwise unremarkable. At this point I suspect you have a viral illness, this could be the coronavirus as well. You have been tested, please fill instructions listed below, you will be contacted with the results. I recommend Phenergan for nausea, albuterol with the provided spacer for wheezing/cough, Tylenol and ibuprofen for fever/chills/body aches, plenty fluids, and rest. Symptoms should simply resolve. Follow-up with primary care. Return if you worsen including difficulty breathing, spiking fever, uncontrolled vomiting, or any other concerning or worsening symptoms. As a person under investigation for COVID-19, the [place] Department of Health and Human Services (division on public health) advises you to adhere to the following guidance until your test results are reported to you. If your test result is positive, you will receive additional information from your provider and your local health department at that time. Remain at home until you are cleared by the health provider or public health authorities. Keep a log of visitors to your home, notify any visitors to your home of your isolation status. If you plan to move to a new address or leave the [facility], notify the local health department in your County. Call your Doctor or seek care if you have an urgent medical need. Before seeking medical care, call him to get instructions from the provider before arriving at the medical office, clinic, or hospital. Notify them that you are being tested for the virus (COVID-19) so that arrangements can be made, as necessary, to prevent transmission to others in the healthcare setting. Next, notify the local health department in your county. If a medical emergency arises and you need to call 911, inform the first responders that you are being tested for the virus that causes COVID-19. Next, notify the local health department in your county. Prescriptions: Promethazine HCl [Phenergan 25 mg Tablet] 25 mg PO Q6H PRN #15 tablet PRN Reason: Albuterol Sulfate [Proair HFA Inhalation Aerosol 8.5 gm MDI] 2 puff IH Q4H PRN #1 mdi PRN Reason: Forms: Return to Work Referrals: CORNEL GARZA PA-C [Primary Care Provider] - Follow up as needed
[2020-02-02 00:04] LABS: APPEARANCE,URINE CLEAR; BILIRUBIN,URINE NEGATIVE (NEGATIVE); COLOR,URINE YELLOW; GLUCOSE, URINE NEGATIVE (NEGATIVE); KETONES,URINE NEGATIVE (NEGATIVE); LEUKOCYTE ESTERASE,URINE NEGATIVE (NEGATIVE); NITRITE,URINE NEGATIVE (NEGATIVE); PROTEIN,URINE NEGATIVE (NEGATIVE); URINE SPECIFIC GRAVITY 1.029; UROBILINOGEN,URINE NEGATIVE mg/dL (<2.0)
[2020-02-02 00:37] LABS: ABSOLUTE BASOPHILS # (AUTO) 0.1 10^3/uL (0.0-0.2); ABSOLUTE EOSINOPHILS # (AUTO) 0.1 10^3/uL (0.0-0.6); ABSOLUTE LYMPHOCYTES (AUTO) 2.5 10^3/uL (0.5-4.7); ABSOLUTE MONOCYTES (AUTO) 0.7 10^3/uL (0.1-1.4); ABSOLUTE NEUT (AUTO) 5.4 10^3/uL (1.7-8.2); BASOPHILS % (AUTO) 0.9 % (0-2); EOSINOPHILS % (AUTO) 0.8 % (0-6); HEMATOCRIT 39.2 % (36.0-47.0); HEMOGLOBIN 13.7 g/dL (12.0-15.5); LYMPHOCYTES % (AUTO) 28.3 % (13-45); MEAN CORPUSCULAR HEMOGLOBIN 30.5 pg (27.0-33.4); MEAN CORPUSCULAR HGB CONC 34.9 g/dL (32.0-36.0); MEAN CORPUSCULAR VOLUME 87 fl (80-97); MONOCYTES % (AUTO) 7.6 % (3-13); PLATELET COUNT 214 10^3/uL (150-450); RED BLOOD COUNT 4.48 10^6/uL (3.72-5.28); RED CELL DISTRIBUTION WIDTH 14.6 % (11.5-14.0); SEGMENTED NEUTROPHILS % (AUTO) 62.4 % (42-78); TOTAL CELLS COUNTED % (AUTO) 100 %; WHITE BLOOD COUNT 8.7 10^3/uL (4.0-10.5)
[2020-02-02 00:52] LABS: ALBUMIN 4.5 g/dL (3.5-5.0); ALKALINE PHOSPHATASE 63 U/L (38-126); ANION GAP 7 (5-19); ASPARTATE AMINO TRANSFERASE 22 U/L (14-36); BILIRUBIN,TOTAL 0.3 mg/dL (0.2-1.3); BLOOD UREA NITROGEN 19 mg/dL (7-20); CALCIUM 9.7 mg/dL (8.4-10.2); CARBON DIOXIDE 24 mmol/L (22-30); CHLORIDE 105 mmol/L (98-107); GLUCOSE 92 mg/dL (75-110); POTASSIUM 4.1 mmol/L (3.6-5.0); TOTAL PROTEIN 7.5 g/dL (6.3-8.2)
--- NOTE | 2020-02-02 01:18 | RADIOLOGY REPORT (SQ) ---
EXAM DESCRIPTION: XR CHEST 1 VIEW COMPLETED DATE/TME: 02/01/2020 23:45 CLINICAL HISTORY: 29 years Female, shortness of breath, cough, chills COMPARISON: None. NUMBER OF VIEWS/TECHNIQUE: 1/AP FINDINGS: Adequate lung volume, clear parenchyma, normal cardiac silhouette, and intact bony thorax. IMPRESSION: No acute cardiopulmonary findings.
[2020-02-02 04:15] VITALS: BP 125/78
== END 2020-02-02 04:16 | disposition home or self-care (01) ==
LOC: ER 23:01
DX: R05 Cough (principal); R68.83 Chills (without fever); R11.0 Nausea; F17.200 Nicotine dependence, unspecified, uncomplicated; Z20.828 Contact with and (suspected) exposure to other viral communicable diseases; Z88.6 Allergy status to analgesic agent; Z88.5 Allergy status to narcotic agent
CPT/HCPCS: 99283; 96361; 96374; 96375; 36415; 85025; 87635; 81025; 80053; 81001; 71045; J1885; J2405; J7030; C9803

== ENCOUNTER 2020-06-29 01:33 | Emergency (ER) | payer BC, MEDICAID ==
[2020-06-29] MEDS ORDERED: IPRATROPIUM/ALBUTEROL 0.5-2.5 MG/3 ML AMPUL NEB ONE (01:54)
--- NOTE | 2020-06-29 01:56 | ER Document Report ---
ED Medical Screen (RME) - General Stated Complaint: COUGH/CHEST PAIN WITH TIGHTNESS/SORE THROAT Time Seen by Provider: 06/29/20 01:54 Primary Care Provider: CORNEL GARZA PA-C [Primary Care Provider] - Follow up as needed Notes: Patient presents complaining of chest pain and cough that started today. Patient reports she works at a [employer]. Patient states that at work she is exposed to Lyme and tech dry on Mondays and and she gets these symptoms although not usually this severe. Patient denies any fever, nausea or vomiting. Patient denies any chronic medical problems. I have greeted and performed a rapid initial assessment of this patient. A comprehensive ED assessment and evaluation of the patient, analysis of test results and completion of the medical decision making process will be conducted by additional ED providers. TRAVEL OUTSIDE OF THE [place] IN LAST 30 DAYS: No - Related Data Allergies/Adverse Reactions: methadone Allergy (Severe, Verified 07/21/19 07:56) Latex, Natural Rubber Adverse Reaction (Mild, Verified 07/21/19 07:56) Past Medical History - Past Medical History Cardiac Medical History: Denies: Hx Hypertension Neurological Medical History: Denies: Hx Cerebrovascular Accident, Hx Migraine Endocrine Medical History: Denies: Hx Diabetes Mellitus Type 2 Musculoskeltal Medical History: Reports Hx Arthritis - mild Psychiatric Medical History: Reports: Hx Anxiety, Hx Bipolar Disorder Past Surgical History: Reports: Hx Section - Immunizations Hx Diphtheria, Pertussis, Tetanus Vaccination: Yes Physical Exam - Vital signs Vitals: Temp Pulse Resp BP Pulse Ox 98.0 F 68 16 127/71 H 98 06/29/20 01:39 06/29/20 01:39 06/29/20 01:39 06/29/20 01:39 06/29/20 01:39 - Respiratory Respiratory status: No respiratory distress Breath sounds: Nonproductive cough, Wheezing Course - Vital Signs Vital signs: Temp Pulse Resp BP Pulse Ox 98.0 F 68 16 127/71 H 98 06/29/20 01:39 06/29/20 01:39 06/29/20 01:39 06/29/20 01:39 06/29/20 01:39 Doctor's Discharge - Discharge Referrals: CORNEL GARZA PA-C [Primary Care Provider] - Follow up as needed
--- NOTE | 2020-06-29 02:53 | RADIOLOGY REPORT (SQ) ---
EXAM DESCRIPTION: XR CHEST 1 VIEW COMPLETED DATE/TME: 06/29/2020 01:54 CLINICAL HISTORY: cough, cp COMPARISON: 02/02/2020 FINDINGS: Single frontal radiograph view of the chest. Cardiomediastinal silhouette: Normal size and contour. Lungs: No consolidation, pneumothorax, or pleural effusion. Bones: No acute osseous abnormality. Upper abdomen: No abnormality identified. IMPRESSION: 1. No acute pulmonary process identified.
[2020-06-29] MEDS ORDERED: PREDNISONE 20 MG TABLET PO ONE (03:35)
--- NOTE | 2020-06-29 03:47 | ER Document Report ---
ED General - General Chief Complaint: Chest Pain Stated Complaint: COUGH/CHEST PAIN WITH TIGHTNESS/SORE THROAT Time Seen by Provider: 06/29/20 01:54 Primary Care Provider: CORNEL GARZA PA-C [Primary Care Provider] - Follow up as needed Notes: 29-year-old female history of smoking, mild intermittent asthma presents with 1 day of cough, shortness of breath, diffuse aching in chest when she coughs, myalgia, sore throat. Has not used her albuterol inhaler since symptom onset. Patient denies any lower extremity edema or pain, DVT/PE/hypercoagulability history in self or family, cancer history, hemoptysis, recent t ravel/trauma/surgery/immobilization, exogenous estrogen therapy//recent . 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 IN LAST 30 DAYS: No - Related Data Allergies/Adverse Reactions: Latex, Natural Rubber Adverse Reaction (Mild, Verified 06/29/20 02:24) Past Medical History - General Information source: Patient - Social History Smoking Status: Current Every Day Smoker Family History: Reviewed & Not Pertinent - Past Medical History Cardiac Medical History: Denies: Hx Hypertension Neurological Medical History: Denies: Hx Cerebrovascular Accident, Hx Migraine Endocrine Medical History: Denies: Hx Diabetes Mellitus Type 2 Musculoskeletal Medical History: Reports Hx Arthritis - mild Psychiatric Medical History: Reports: Hx Anxiety, Hx Bipolar Disorder Past Surgical History: Reports: Hx Section - Immunizations Hx Diphtheria, Pertussis, Tetanus Vaccination: Yes Review of Systems - Review of Systems Notes: REVIEW OF SYSTEMS: CONSTITUTIONAL : Denies fever, chills, or sweats. EENT: + recent cold symptoms, +throat pain CARDIOVASCULAR: Denies chest pain, NICOLETTE RESPIRATORY: +cough, +shortness of breath. GASTROINTESTINAL: Denies abdominal pain, nausea/vomiting. GENITOURINARY: Denies difficulty urinating, painful urination. FEMALE GENITOURINARY: Denies abnormal vaginal bleeding, vaginal discharge. MUSCULOSKELETAL: Denies neck pain, back pain. SKIN: Denies rash or skin lesions. HEMATOLOGIC : Denies easy bruising or bleeding. LYMPHATIC: Denies swollen, enlarged glands. NEUROLOGICAL: Denies headache, denies change in gait. PSYCHIATRIC: Denies anxiety or stress or depression. Physical Exam - Vital signs Vitals: Temp Pulse Resp BP Pulse Ox 98.0 F 68 16 127/71 H 98 06/29/20 01:39 06/29/20 01:39 06/29/20 01:39 06/29/20 01:39 06/29/20 01:39 - Notes Notes: PHYSICAL EXAMINATION: GENERAL: Well-appearing, well-nourished mildly uncomfortable appearing young adult female lying in stretcher in no acute distress. HEAD: Atraumatic, normocephalic. EYES: Pupils equal round and appropriate constriction, sclera anicteric, conjunctiva are normal. ENT: nares patent, moist mucous membranes, no tonsillar edema or exudates NECK: Normal range of motion, supple without lymphadenopathy LUNGS: Normal respiratory rate and effort, speaking in full sentences, no accessory muscle use, good air movement, slight expiratory wheezing bilaterally HEART: Regular rate and rhythm without murmurs ABDOMEN: Soft, nontender, no guarding, no masses, no CVAT EXTREMITIES: Normal range of motion, no pitting or edema. No cyanosis. NEUROLOGICAL: Awake, alert, conversing appropriately, moves all extremities spontaneously. PSYCH: Normal mood, normal affect. SKIN: Warm, Dry, normal turgor, no rashes or lesions noted. Course - Re-evaluation Re-evalutation: 06/29/20 03:57 Mild asthma exacerbation likely triggered by environmental exposures at work but rule out COVID-19, influenza. Normal work of breathing, good air movement, no findings on chest x-ray, normal vital signs. PERC negative. No cardiac risk factors and story not consistent with cardiac etiology. Albuterol, steroids, quarantine precautions, DC with standing albuterol prednisone and PCP follow-up. Gave patient extensive asthma education which she demonstrated understanding of. - Vital Signs Vital signs: Temp Pulse Resp BP Pulse Ox 98.4 F 74 16 132/78 H 98 06/29/20 05:11 06/29/20 05:11 06/29/20 05:11 06/29/20 05:11 06/29/20 05:11 - EKG Interpretation by Me Additional EKG results interpreted by me: 06/29/20 05:55 Sinus arrhythmia, no significant ST elevations or depressions, no significant T wave inversions Discharge - Discharge Clinical Impression: Viral syndrome Asthma exacerbation Qualifiers: Asthma severity: mild Asthma persistence: intermittent Qualified Code(s): J4 5.21 - Mild intermittent asthma with (acute) exacerbation Disposition: HOME, SELF-CARE Instructions: COVID-19 Guidance for Persons Under Investigation Additional Instructions: Patient was provided with discharge information including: As a person under investigation for Covid 19, the [facility] of Health and Human Services, division of public health advises you to adhere to the following guidance until your test results are reported to you. If your test result is positive, you will receive additional information from your provider and your local health department at that time. Remain at home until you are cleared by the health provider or public health authorities. Keep a log of visitors to your home, notify any visitors to your home of your isolation status. If you plan to move to a new address or leave the county, notify the local health department in your County. Call your doctor or seek care if you have an urgent medical need. Before seeking medical care, call ahead to get instructions from the provider before arriving at the medical office clinic or hospital. Notify them that you are being tested for the virus that causes Covid 19 so that arrangements can be made, as necessary, to prevent transmission to others in the healthcare setting. Next, notify the local health department in your county. If a medical emergency arises and you need to call 911, inform the first responders that you are being tested for the virus that causes Covid 19. Next, notify the local health department in your county. Asthma You have been diagnosed as having asthma. This is a condition where there is episodic tightness in the bronchial tubes. Allergies, infections, and polluted or cold air may be contributing factors. Emergency treatment of a severe asthma attack may include adrenaline shots, or bronchodilator aerosol. You may feel lightheaded, have a decreased exercise tolerance and a rapid pulse for an hour or two. Rest and get plenty of fluids. Home treatment of asthma requires bronchodilator drugs. These can be administered by injection, inhalation, or by mouth. Antibiotics and corticosteroids may be required for some patients. You should avoid chemical fumes, dusts, pollens, and exercising in very cold or dry air. If you smoke, stop!! If you develop a fever, increased wheezing, chest pain, or severe shortness of breath, you should contact the doctor immediately Take 2 puffs of albuterol every 4 hours over the next 4 days. Take all of prednisone as prescribed. Follow-up with your doctor within 3 days. If you have any worsening symptoms, difficulty breathing, dizziness, fainting, confusion, chest pain, or any other worsening or alarming symptoms return to the emergency department immediately. Prescriptions: Prednisone [Deltasone 20 mg Tablet] 2 tab PO DAILY 4 Days #8 tablet Referrals: CORNEL GARZA PA-C [Primary Care Provider] - Follow up as needed
[2020-06-29] MEDS ORDERED: ALBUTEROL SULFATE HFA (90 MCG/PUFF) 8 GM MDI (1 MDI/ER DISP) IH ONE (04:46)
[2020-06-29 05:12] VITALS: BP 132/78
--- NOTE | 2020-06-29 08:46 | EKG REPORT ---
SEVERITY:- OTHERWISE NORMAL ECG - SINUS ARRHYTHMIA, RATE 50-78 : Confirmed by: Smith Rausch MD 29-Jun-2020 08:46:04
== END 2020-06-29 05:11 | disposition home or self-care (01) ==
LOC: ER 01:33
DX: J45.21 Mild intermittent asthma with (acute) exacerbation (principal); J02.9 Acute pharyngitis, unspecified; B34.9 Viral infection, unspecified; R07.9 Chest pain, unspecified; Z20.828 Contact with and (suspected) exposure to other viral communicable diseases
CPT/HCPCS: 93005; 94640; 99285; 81025; 71045; 93010; U0003; J7512; J3490; C9803; 87635

== ENCOUNTER 2020-09-06 07:50 | Emergency (ER) | payer BC, MEDICAID ==
[2020-09-06] MEDS ORDERED: KETOROLAC TROMETHAMINE 60 MG/2 ML SDV IM ONE (09:09)
--- NOTE | 2020-09-06 09:10 | ER Document Report ---
ED Medical Screen (RME) - General Chief Complaint: Pelvic Pain Stated Complaint: VAG BLEED Primary Care Provider: CORNEL GARZA PA-C [Primary Care Provider] - Follow up as needed Notes: HPI: 29-year-old female presenting for evaluation of heavy vaginal bleeding with pelvic pain. States this occurs every menstrual cycle because of a fibroid in her uterus. Has not seen [facility] in the last year. Does not take any medications for this. States that the pain this time is worse than normal PHYSICAL EXAMINATION: Appears moderately uncomfortable. Mild tenderness across the pelvis on palpation, exam deferred in triage I have greeted and performed a rapid initial assessment of this patient. A comprehensive ED assessment and evaluation of the patient, analysis of test results and completion of medical decision making process will be conducted by an additional ED providers. Please note that clinical decision making for this patient was made during the 2019 pandemic of novel coronavirus which caused a significant strain on the healthcare system including at this particular facility. Criteria for admission discharge and level of care decisions as well as treatment decisions have necessarily changed TRAVEL OUTSIDE OF THE [place] IN LAST 30 DAYS: No - Related Data Allergies/Adverse Reactions: Latex, Natural Rubber Adverse Reaction (Mild, Verified 09/06/20 09:04) Past Medical History - Past Medical History Cardiac Medical History: Denies: Hx Hypertension Neurological Medical History: Denies: Hx Cerebrovascular Accident, Hx Migraine Endocrine Medical History: Denies: Hx Diabetes Mellitus Type 2 Musculoskeltal Medical History: Reports Hx Arthritis - mild Psychiatric Medical History: Reports: Hx Anxiety, Hx Bipolar Disorder Past Surgical History: Reports: Hx Section - Immunizations Hx Diphtheria, Pertussis, Tetanus Vaccination: Yes Physical Exam - Vital signs Vitals: Temp Pulse Resp BP Pulse Ox 97.9 F 95 20 116/71 100 09/06/20 07:54 09/06/20 07:54 09/06/20 07:54 09/06/20 07:54 09/06/20 07:54 Course - Vital Signs Vital signs: Temp Pulse Resp BP Pulse Ox 97.9 F 95 20 116/71 100 09/06/20 07:54 09/06/20 07:54 09/06/20 07:54 09/06/20 07:54 09/06/20 07:54 Doctor's Discharge - Discharge Referrals: CORNEL GARZA PA-C [Primary Care Provider] - Follow up as needed
[2020-09-06 09:46] LABS: ABSOLUTE EOSINOPHILS # (AUTO) 0.1 10^3/uL (0.0-0.6); ABSOLUTE LYMPHOCYTES (AUTO) 1.8 10^3/uL (0.5-4.7); ABSOLUTE MONOCYTES (AUTO) 0.6 10^3/uL (0.1-1.4); ABSOLUTE NEUT (AUTO) 4.6 10^3/uL (1.7-8.2); BASOPHILS % (AUTO) 0.5 % (0-2); EOSINOPHILS % (AUTO) 1.6 % (0-6); HEMOGLOBIN 10.6 g/dL (12.0-15.5); LYMPHOCYTES % (AUTO) 25.1 % (13-45); MEAN CORPUSCULAR HEMOGLOBIN 25.6 pg (27.0-33.4); MEAN CORPUSCULAR HGB CONC 33.1 g/dL (32.0-36.0); MEAN CORPUSCULAR VOLUME 77 fl (80-97); MONOCYTES % (AUTO) 8.7 % (3-13); PLATELET COUNT 209 10^3/uL (150-450); RED BLOOD COUNT 4.14 10^6/uL (3.72-5.28); RED CELL DISTRIBUTION WIDTH 16.9 % (11.5-14.0); SEGMENTED NEUTROPHILS % (AUTO) 64.1 % (42-78); TOTAL CELLS COUNTED % (AUTO) 100 %; WHITE BLOOD COUNT 7.2 10^3/uL (4.0-10.5)
[2020-09-06 10:03] LABS: ALBUMIN 3.6 g/dL (3.5-5.0); ALKALINE PHOSPHATASE 59 U/L (38-126); ASPARTATE AMINO TRANSFERASE 19 U/L (14-36); BILIRUBIN,DIRECT 0.1 mg/dL (0.0-0.4); BILIRUBIN,TOTAL 0.4 mg/dL (0.2-1.3); BLOOD UREA NITROGEN 14 mg/dL (7-20); CALCIUM 9.4 mg/dL (8.4-10.2); GLUCOSE 79 mg/dL (75-110); POTASSIUM 4.6 mmol/L (3.6-5.0); TOTAL PROTEIN 6.3 g/dL (6.3-8.2)
[2020-09-06 10:08] LABS: CARBON DIOXIDE 29 mmol/L (22-30); CHLORIDE 108 mmol/L (98-107)
[2020-09-06 10:12] LABS: ANION GAP 2 (5-19)
[2020-09-06 10:22] LABS: APPEARANCE,URINE CLEAR; BILIRUBIN,URINE NEGATIVE (NEGATIVE); COLOR,URINE YELLOW; GLUCOSE, URINE NEGATIVE (NEGATIVE); KETONES,URINE NEGATIVE (NEGATIVE); LEUKOCYTE ESTERASE,URINE NEGATIVE (NEGATIVE); NITRITE,URINE NEGATIVE (NEGATIVE); PROTEIN,URINE NEGATIVE (NEGATIVE); URINE SPECIFIC GRAVITY 1.025; UROBILINOGEN,URINE NEGATIVE mg/dL (<2.0)
--- NOTE | 2020-09-06 10:43 | RADIOLOGY REPORT (SQ) ---
EXAM DESCRIPTION: U/S NON-OB PELVIS W/O DOP IMAGES COMPLETED DATE/TIME: 09/06/2020 10:26 am REASON FOR STUDY: pelvic pain fibroid COMPARISON: None. TECHNIQUE: Dynamic and static grayscale images acquired of the pelvis via transabdominal approach an d recorded on PACS. Additional selected color Doppler and spectral images recorded. LIMITATIONS: None. FINDINGS: UTERUS: Small uterine fibroid measuring 3.3 x 3.0 x 3.0 cm. ENDOMETRIAL STRIPE: No focal or generalized thickening. No masses. CERVIX: No nabothian cysts. RIGHT OVARY AND DOPPLER: Normal size. No worrisome masses. Normal arterial vascular flow without evid ence for torsion. LEFT OVARY AND DOPPLER: Normal size. No worrisome masses. Normal arterial vascular flow without evide nce for torsion. FREE FLUID: None noted. OTHER: No other significant finding. MEASUREMENTS: UTERUS: 10.3 x 6.6 x 6.1 cm. ENDOMETRIAL STRIPE: 8.9 mm. RIGHT OVARY: 3.9 x 2.0 x 2.3 cm. LEFT OVARY: 3.1 x 1.8 x 2.2 cm. IMPRESSION: Uterus is enlarged measuring 10.3 x 6.6 x 6.1 cm. Single dominant 3.3 x 3.0 x 3.0 cm fi broid is noted. TECHNICAL DOCUMENTATION: JOB ID: [id number] 2010 [employer]- All Rights Reserved Rev-01/15 Reading location - IP/workstation name: [email or web address]
[2020-09-06] MEDS ORDERED: ONDANSETRON HCL INJ/PF 4 MG/2 ML SDV IV ONE (11:33)
[2020-09-06] MEDS ORDERED: NORMAL SALINE 1000 ML 1,000 ML IV ONE (11:33)
[2020-09-06] MEDS ORDERED: MORPHINE SULFATE 10 MG/ML INJ IV ONE (11:34)
--- NOTE | 2020-09-06 11:41 | ER Document Report ---
ED General - General Chief Complaint: Vaginal Bleeding Stated Complaint: VAGINAL BLEEDING Time Seen by Provider: 09/06/20 09:10 Primary Care Provider: CORNEL GARZA PA-C [Primary Care Provider] - Follow up as needed TRAVEL OUTSIDE OF THE [place] IN LAST 30 DAYS: No - HPI Notes: Chief complaint: Heavy vaginal bleeding and pelvic cramping History of present illness: 29-year-old female 4 para 4 with history of fibroid uterus presents for evaluation of heavy vaginal bleeding and pelvic cramping. Patient states that she has not seen a coater brake linings in over a year and does not have a current provider. She has been previously advised that she probably needs a hysterectomy. States that her periods are always heavy but this 1 is particularly bothersome in terms of passing large clots and having intermittent severe pelvic cramping. Symptoms have been more or less continuous for the past 2 days. I asked her about pad count and she says that she typically uses adult diapers during her. Each month. She denies syncope or presyncope but feels "bad all over." mild nausea without vomiting. No dysuria. No fever/chills. - Related Data Allergies/Adverse Reactions: Latex, Natural Rubber Adverse Reaction (Mild, Verified 09/06/20 09:04) Past Medical History - General Information source: Patient - Social History Smoking Status: Current Every Day Smoker Frequency of alcohol use: Rare Drug Abuse: None Lives with: Family Family History: Reviewed & Not Pertinent - Past Medical History Cardiac Medical History: Denies: Hx Hypertension Pulmonary Medical History: Reports: Hx Asthma Neurological Medical History: Denies: Hx Cerebrovascular Accident, Hx Migraine Endocrine Medical History: Denies: Hx Diabetes Mellitus Type 2 Musculoskeletal Medical History: Reports Hx Arthritis - mild Psychiatric Medical History: Reports: Hx Anxiety, Hx Bipolar Disorder Past Surgical History: Reports: Hx Section - Immunizations Hx Diphtheria, Pertussis, Tetanus Vaccination: Yes Review of Systems - Review of Systems Notes: Constitutional: Negative for fever. HENT: Negative for sore throat. Eyes: Negative for visual changes. Cardiovascular: Negative for chest pain. Respiratory: Negative for shortness of breath. Gastrointestinal: Negative for abdominal pain, vomiting or diarrhea. Genitourinary: As per HPI. Musculoskeletal: Negative for back pain. Skin: Negative for rash. Neurological: Negative for headaches, weakness or numbness. 10 point ROS negative except as marked above and in HPI. Physical Exam - Vital signs Vitals: Temp Pulse Resp BP Pulse Ox 97.9 F 95 20 116/71 100 09/06/20 07:54 09/06/20 07:54 09/06/20 07:54 09/06/20 07:54 09/06/20 07:54 - Notes Notes: GENERAL: Female patient approximately stated age appears uncomfortable complaining of pelvic cramping. SKIN: Good turgor no rashes. HEAD: Normocephalic atraumatic. EYES: PERRLA. EOMI. Conjunctivae and sclerae clear. EARS: CANALS AND TMS CLEAR. NOSE: CLEAR. MOUTH: Moist mucosa. Good dentition. No stridor or edema. No drooling. NECK: Supple. No masses or thyromegaly. No adenopathy. Carotids 2+ without bruits. No JVD. BACK: Symmetrical without tenderness. CHEST: Respirations unlabored. Breath sounds clear and symmetrical. HEART: Regular rhythm. No murmur gallop or rub. ABDOMEN: Mild tenderness suprapubic area. Soft without masses, organomegaly or rebound. Bowel sounds normally active. No bruits. GENITALIA: Deferred. EXTREMITIES: No edema. No calf tenderness. Cap refill less than 1.5 seconds. Dorsalis pedis and posterior tibial pulses 3+ and symmetrical. NEUROLOGICAL: GCS 15. Alert and oriented x3. Normal gait. Fluent speech. Cranial nerves II through XII intact. Sensorimotor and cerebellar normal. Normal tone. PSYCHIATRIC: Appropriate affect. Course - Re-evaluation Re-evalutation: 09/06/20 11:42 Patient was given IM Toradol in triage. She says this is helped her symptoms minimally. I will give her a liter of IV normal saline and will give her 1 dose of morphine IV along with some Zofran IV. Will recheck orthostatic vital signs after IV fluids and anticipate discharge with oral Provera and Toradol with outpatient referral to [facility]. Findings, clinical impression and plan of treatment have been discussed with patient/family. Understanding of current findings and recommendations has been acknowledged by them and there is agreement regarding disposition and follow-up. - Vital Signs Vital signs: Temp Pulse Resp BP Pulse Ox 97.9 F 57 L 20 103/53 L 100 09/06/20 07:54 09/06/20 12:53 09/06/20 07:54 09/06/20 12:53 09/06/20 07:54 - Laboratory Results Result Diagrams: 09/06/20 09:25 09/06/20 09:25 Laboratory Results Interpreted: 09/06/20 09/06/20 09/06/20 09:25 09:25 10:00 Hgb 10.6 L Hct 32.0 L MCV 77 L MCH 25.6 L RDW 16.9 H Chloride 108 H Anion Gap 2 L Urine Blood SMALL H Critical Laboratory Results Reviewed: Yes Attending or Supervising Physician who Reviewed Labs: [facility] - Radiology Results Radiology Results Interpreted: 09/06/20 11:41 Pelvis Ultrasound 09/06/20 09:09 IMPRESSION: Uterus is enlarged measuring 10.3 x 6.6 x 6.1 cm. Single dominant 3.3 x 3.0 x 3.0 cm fibroid is noted. Critical Radiology Results Reviewed: Yes Attending or Supervising Physician who Reviewed Radiology: [facility] Discharge - Discharge Clinical Impression: Vaginal bleeding Fibroid uterus Qualifiers: Uterine leiomyoma location: unspecified location Qualified Code(s): D25.9 - Leiomyoma of uterus, unspecified Iron deficiency anemia Qualifiers: Iron deficiency anemia type: chronic blood loss Qualified Code(s): D50.0 - Iron deficiency anemia secondary to blood loss (chronic) Condition: Stable Disposition: HOME, SELF-CARE Instructions: [facility] Director Doctors Additional Instructions: Return here as needed for new or worsening symptoms: Pain that is worsening or unimproved Uncontrolled vomiting High fever or shaking chills Overall worsening Prescriptions: Ferrous Sulfate [Feosol 325 mg Tablet] 325 mg PO DAILY 30 Days #30 tab Naproxen [Naprosyn 375 Mg Tablet] 375 mg PO BID 30 Days #60 tablet Medroxyprogesterone Acet [Provera 10 Mg Tablet] 10 mg PO BID 5 Days #10 tablet Forms: Return to Work Referrals: CORNEL GARZA PA-C [Primary Care Provider] - Follow up as needed MAYANK STEVENS MD [ACTIVE STAFF] - Follow up as needed
[2020-09-06 15:36] VITALS: BP 125/61
== END 2020-09-06 15:37 | disposition home or self-care (01) ==
LOC: ER 07:50
DX: N93.8 Other specified abnormal uterine and vaginal bleeding (principal); D25.9 Leiomyoma of uterus, unspecified; D50.0 Iron deficiency anemia secondary to blood loss (chronic); R10.2 Pelvic and perineal pain; F17.200 Nicotine dependence, unspecified, uncomplicated; Z91.040 Latex allergy status
CPT/HCPCS: 99285; 96372; 96361; 96374; 96375; 36415; 84703; 85025; 80053; 81001; 76856; J1885; J2270; J2405; J7030